=== PATIENT | male | born 1975 | race Caucasian/White ===

== ENCOUNTER 2022-01-04 19:51 | Emergency (ER) | payer OTHER ==
[~2022-01-04] VITALS: Ht 172.7 cm; Wt 74.8 kg
[~2022-01-04 19:51] MED LIST: AMOX500 PO; CRUTCH2 USE; HYDACE5 PO; IBUP800 PO; NAPR550 PO; PENVK500 PO; RXHYDACE PO; RXPENVK250 PO; TRAM50 PO
[2022-01-04] MEDS ORDERED: CEPH500 PO (23:10)
== END 2022-01-04 23:18 | disposition home or self-care (01) ==
LOC: ER 19:51
DX: L03.116 Cellulitis of left lower limb (principal); L03.311 Cellulitis of abdominal wall; F17.200 Nicotine dependence, unspecified, uncomplicated
CPT/HCPCS: A9270